=== PATIENT | female | born 1970 | race Caucasian/White ===

== ENCOUNTER 2017-01-18 19:30 | Emergency (ER) | payer OTHER ==
--- NOTE | ~2017-01-18 | CT2 ---
[facility] A Service of [facility] & [facility] RADIOLOGY TEXT RESULTS PATIENT: SHELLY JI LOCATION: [facility] : 70 UNIT #: [id number] AGE: [address]: Rafat Chi MD SEX: F ORDER DR: [id number] [facility] [address] [place], [place] [address] [id number] E MR#: [id number] Acc #: [id number] NAME: SHELLY JI. : 1970 SEX: F STUDY DATE/TIME: 01/18/2017 22:57 UNIT: [facility] ROOM: STUDY DESCRIPTION: CT Abd and Pelv W Cont Attending Physician: Rafat Chi M.D. Ordering Physician: Henrik Booth D.O. Primary Care Physician: Gabriela Patrick M.D. MEDICAL IMAGING REPORT This report is preliminary unless electronic signature is present EXAM CT abdomen and pelvis with contrast. Date: 01/18/2017. HISTORY Left side abdominal pain which began last week with aching, for the last 4 days, worse. 2 weeks ago had stents through the pancreas and liver. Previous cholecystectomy and tubal ligation. COMPARISON CT abdomen and pelvis with contrast 12/16/2016 and ERCP 12/30/2016. PROCEDURE 5 mm axial images from lung bases through lesser trochanters after intravenous and enteric contrast administration. Sagittal coronal reformed images were obtained. This CT exam was performed with one or more of the following radiation dose reduction techniques: automatic exposure control, adjustment of mA and/or kV according to patient size, and iterative reconstruction. FINDINGS Expandable metallic stent is seen within the CBD and the pancreatic duct stent is also in place. These appear in appropriate positioned. Pneumobilia in the liver thought to be related to previous biliary instrumentation. Cholecystectomy. Liver, spleen, pancreas, adrenals and kidneys are within normal limits. Moderate calcific atherosclerosis in a non-aneurysmal abdominal aorta. Lung bases appear free of consolidation. Previously described peripancreatic. No inflammatory changes have resolved. The appendix is not discretely visualized, but no pericecal inflammation is seen. [facility] A Service of [facility] & [facility] RADIOLOGY TEXT RESULTS PATIENT: [facility]LLY [id number] [birth year] UNIT #: [id number] AGE: [address]: Rafat Chi MD SEX: F ORDER DR: Pelvis findings: 3.8 x 1.5 cm left ovarian cyst versus fluid distension of the fallopian tube, similar to 12/16/2016. Uterus, urinary bladder and rectum are within normal limits. No pelvic adenopathy or free fluid. Mild emphysematous changes thought to be present in the lung bases. Old left ninth and tenth rib fractures. No acute osseous abnormalities are identified. IMPRESSION 1. No acute findings the abdomen and pelvis. No acute inflammation is seen. 2. The inflammatory changes of the pancreas and duodenum described on 12/16/2016 have resolved. Pancreatic duct stent, CBD stents appear appropriately positioned. 3. Cholecystectomy. 4. Fluid distension left fallopian tube versus elongated left ovarian cyst measuring 3.8 x 1.5 cm, thought to be similar to the 12/16/2016 examination. 5. Old left rib fractures. 6. Appendix not visualized. No pericecal inflammation is seen. Dictated by... Aury Coelho M.D. THIS IS AN ELECTRONICALLY VERIFIED REPORT Aury Coelho M.D. at 01/19/2017 9:59 PM CRISTOFER/margaret TD: 01/19/2017 10:31 JOB #: [id number] MEDICAL IMAGING REPORT COPY
[~2017-01-18 19:30] MED LIST: ALBUTEROL17 GM INH; BUSPAR PO; CLARITIN10 M3 PO; DILANTIN KAPSE100 MG PO; DILANTIN PO; EFFEXOR PO; FOLIC ACID1 MG PO; HCTZ PO; HYDROCHLOROTH12.5 M1 PO; HYDROCHLOROTH12.5 MG PO; LIBRIUM25 MG PO; LISINOPRIL PO; LITHIUM CARBON600 MG PO; LITHIUM PO; LORTAB 5-325 M1 EACH PO; MACROBID100 M1 PO; MILK OF MA800 MG/5 M PO; MULTIPLE VITAMI1 T11 PO; NORFLEX100 M1 PO; PRINIVIL20 M1 PO; PROTONIX PO; RISPERIDONE2 MG PO; SYMBICORT INH; THIAMINE HCL100 M2 PO; TYLENOL #3 PO; VOLTAREN75 MG PO; ZITHROMAX PO; ZOFRAN ODT4 MG PO; ZOLOFT100 MG PO
[2017-01-18 19:54] LABS: URINE SOURCE CLEAN CATCH
[2017-01-18 19:59] LABS: URINE APPEARANCE CLEAR; URINE BILIRUBIN NEG (NEG); URINE BLOOD 1+ (NEG); URINE COLOR YELLOW; URINE GLUCOSE NEG (NEG); URINE KETONE NEG (NEG); URINE LEUKOCYTE ESTERASE NEG (NEG); URINE NITRATE NEG (NEG); URINE PROTEIN NEG (NEG); URINE SPECIFIC GRAVITY 1.004 (1.003-1.035); URINE UROBILINOGEN 0.2 MG/DL (NEG)
[2017-01-18 20:00] LABS: BASOPHIL# 0.1 X10e3 (0-0.3); BASOPHIL% 1.1 % (0-2.5); EOSINOPHIL# 0.3 X10e3 (0-0.7); EOSINOPHIL% 4.1 % (0.0-7.0); HEMATOCRIT 43.3 % (35.0-45.0); HEMOGLOBIN 14.6 gm/dL (12.0-16.0); LYMPHOCYTE# 1.3 X10e3 (1.0-3.5); LYMPHOCYTE% 17.2 % (17.0-45.0); MEAN CELL VOLUME 100.6 FL (83-96); MEAN CORPUSCULAR HEMOGLOBIN 33.9 PG (28-34); MEAN CORPUSCULAR HGB CONC 33.7 g/dL (30-36); MEAN PLATELET VOLUME 7.1 FL (6.5-11.5); MONOCYTE# 0.5 X10e3 (0-1.0); MONOCYTE% 6.3 % (3.0-12.0); NEUTROPHIL# 5.3 X10e3 (1.5-7.1); NEUTROPHIL% 71.3 % (40-75); PLATELET COUNT 327 X10e3 (140-420); RED CELL DISTRIBUTION WIDTH 13.7 % (11.0-15.5); WHITE BLOOD COUNT 7.5 X10e3 (4.0-10.5)
[2017-01-18 20:01] LABS: DIFF IND NO
[2017-01-18 20:02] LABS: URBCS1 AUWI 0-2 /[HPF] (0-2); URINE BACTERIA AUWI NEG (NEGATIVE); URINE SQUAMOUS EPITHELIAL CELL NONE SEEN /[HPF]; UWBCS1 AUWI 0-2 (0-5)
[2017-01-18 20:03] LABS: CULTURE INDICATED? NO
[2017-01-18 20:28] LABS: ALBUMIN SERUM 4.1 g/dL (3.5-5.0); ALKALINE PHOSPHATASE 58 U/L (32-92); ALT (SGPT) 30 U/L (10-40); AMYLASE 46 U/L (0-46); AST (SGOT) 32 U/L (10-42); BILIRUBIN, DIRECT 0.1 mg/dL (0.0-0.2); BILIRUBIN,INDIRECT 0.1 mg/dL (0.0-0.9); BILIRUBIN,TOTAL 0.2 mg/dL (0.2-2.0); BLOOD UREA NITROGEN 7 mg/dL (9-23); CALCIUM SERUM 9.2 mg/dL (8.4-10.2); CARBON DIOXIDE 25 mmol/L (22-31); CHLORIDE 102 mmol/L (100-111); CREATININE SERUM 0.7 mg/dL (0.6-1.4); GLOM FILT RATE Estimated ABOVE60 mL/min (>60); GLUCOSE FASTING 97 mg/dL (70-110); LIPASE 111 U/L (22-51); PROTEIN TOTAL SERUM 6.7 g/dL (6.0-8.3); SODIUM 135 mmol/L (135-145)
[2017-01-18 22:39] LABS: POC - TROPONIN <0.05 ng/mL (<=0.05)
== END 2017-01-19 00:32 | disposition home or self-care (01) ==
LOC: CED 19:30
PROVIDERS: Emergency Medicine
DX: R10.9 Unspecified abdominal pain (principal); Z90.49 Acquired absence of other specified parts of digestive tract; Z90.89 Acquired absence of other organs; G40.909 Epilepsy, unspecified, not intractable, without status epilepticus
CPT/HCPCS: 74177; 80048; 80076; 81003; 82150; 82553; 83690; 84484; 84703; 85025; 85379; 96361; 96374; 96375; 99284; C9113; J2405; Q9967

== ENCOUNTER → 2017-02-18 | Outpatient (CLI) | payer OTHER ==
--- NOTE | ~2017-02-18 | CR7 ---
[facility] A Service [facility] RADIOLOGY TEXT RESULTS PATIENT: SHELLY JI LOCATION: [facility] : 70 UNIT #: [id number] AGE: [address]: Elysia Velazquez MD SEX: F ORDER DR: [id number] [place] [address] [id number] O MR#: [id number] Acc #: [id number] NAME: SHELLY JI : 1970 SEX: F STUDY DATE/TIME: 02/18/2017 18:51 UNIT: [facility] ROOM: STUDY DESCRIPTION: CR Abdomen Single AP View Attending Physician: Elysia Velazquez M.D. Ordering Physician: Elysia Velazquez M.D. Primary Care Physician: Gabriela Patrick M.D. MEDICAL IMAGING REPORT This report is preliminary unless electronic signature is present. EXAM Abdominal radiograph INDICATIONS Pancreatic stent placement. Followup. PROCEDURE Supine view of the abdomen COMPARISON CT from 01/18/2017 FINDINGS Previous cholecystectomy. Pancreatic stent is in place. Stent not appreciably changed since the previous CT. There is also a common duct wall stent in place that also appears stable in position. Moderate colonic stool . IMPRESSION Common duct and pancreatic duct stents are not significantly changed compared with 01/18/2017 CT. Dictated by... Wei Romo M.D. THIS IS AN ELECTRONICALLY VERIFIED REPORT Wei Romo M.D. at 02/20/2017 6:52 AM EED/bd TD: 02/19/2017 10:58 JOB #: [id number] [facility] A Service [facility] RADIOLOGY TEXT RESULTS PATIENT: SHELLY JI LOCATION: [facility] : 70 UNIT #: [id number] AGE: [address]: Elysia Velazquez MD SEX: F ORDER DR: MEDICAL IMAGING REPORT Page 1 of 1
== END | disposition home or self-care (01) ==
LOC: SRAD 18:43
DX: Z48.815 Encounter for surgical aftercare following surgery on the digestive system (principal); Z96.89 Presence of other specified functional implants
CPT/HCPCS: 74000

== ENCOUNTER → 2017-04-20 | Outpatient (CLI) | payer OTHER ==
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
== END | disposition home or self-care (01) ==
LOC: SRAD 17:10
DX: M79.622 Pain in left upper arm (principal)
CPT/HCPCS: 73060

== ENCOUNTER 2017-05-22 16:59 | Emergency (ER) | payer OTHER ==
--- NOTE | ~2017-05-22 | CT4 ---
[facility] A Service of [facility] & [facility] RADIOLOGY TEXT RESULTS PATIENT: SHELLY JI LOCATION: [facility] : 70 UNIT #: [id number] AGE: [address]: Aris Joyce MD SEX: F ORDER DR: [id number] [facility] [address] [place], [place] [address] [id number] E MR#: [id number] Acc #: [id number] NAME: SHELLY JI : 1970 SEX: F STUDY DATE/TIME: 05/22/2017 20:40 UNIT: [facility] ROOM: STUDY DESCRIPTION: CT Abd and Pelv Wo Cont Attending Physician: Aris Joyce M.D. Ordering Physician: Aris Joyce M.D. Primary Care Physician: Gabriela Patrick M.D. MEDICAL IMAGING REPORT This report is preliminary unless electronic signature is present EXAM CT scan of the abdomen and pelvis without contrast, 05/22/2017 HISTORY Left lower quadrant and right lower quadrant abdominal pain for 3 days. Pancreatitis, status post pancreatic duct stent placement. Hypertension. TECHNIQUE Spiral CT was performed through the abdomen and pelvis without oral or intravenous contrast administration as per clinician request. This CT exam was performed with one or more of the following radiation dose reduction techniques: automatic exposure control, adjustment of mA and/or kV according to patient size, and iterative reconstruction. FINDINGS ABDOMEN: The exam is extremely limited due to the lack of oral and intravenous contrast. The liver, spleen, adrenal glands are normal. The gallbladder is surgically absent. There is a stent in place within the pancreatic duct. No pancreatic or biliary ductal dilatation is seen. The right kidney is normal. Tiny nonobstructing stones left kidney. PELVIS FINDINGS: The gut, mesenteric and janee structures are normal. There is no free fluid in the abdomen or pelvis. Fluid distension of the left fallopian tube versus elongated left ovarian cyst is unchanged compared with 01/18/2017. This would be better evaluated with pelvic ultrasound if clinically indicated. The lung bases are normal. IMPRESSION 1. Exam is limited by the lack of oral and intravenous contrast. 2. Surgical absence of the gallbladder. 3. Pancreatic duct stent in good position. No pancreatic or biliary STS. [facility] A Service of [facility] & [facility] RADIOLOGY TEXT RESULTS PATIENT: SHELLY JI LOCATION: [facility] : 70 UNIT #: [id number] AGE: [address]: Aris Joyce MD SEX: F ORDER DR: ductal dilatation. 4. Nonobstructing left renal stones. 5. Stable fluid distension left fallopian tube versus elongated left ovarian cyst compared with 01/18/2017. This would be better evaluated with pelvic ultrasound if clinically indicated. Dictated by... Bakari Keller M.D. THIS IS AN ELECTRONICALLY VERIFIED REPORT Bakari Keller M.D. at 05/23/2017 7:22 AM YOLANDA/jacklyn TD: 05/23/2017 04:14 JOB #: [id number] MEDICAL IMAGING REPORT Page 1 of 1 COPY
[2017-05-22 19:54] LABS: BASOPHIL% 0.5 % (0-2.5); EOSINOPHIL# 0.1 X10e3 (0-0.7); EOSINOPHIL% 1.1 % (0.0-7.0); HEMOGLOBIN 14.6 gm/dL (12.0-16.0); LYMPHOCYTE# 1.7 X10e3 (1.0-3.5); LYMPHOCYTE% 25.1 % (17.0-45.0); MEAN CELL VOLUME 97.7 FL (83-96); MEAN CORPUSCULAR HEMOGLOBIN 32.4 PG (28-34); MEAN CORPUSCULAR HGB CONC 33.2 g/dL (30-36); MEAN PLATELET VOLUME 7.4 FL (6.5-11.5); MONOCYTE# 0.6 X10e3 (0-1.0); MONOCYTE% 8.8 % (3.0-12.0); NEUTROPHIL# 4.3 X10e3 (1.5-7.1); NEUTROPHIL% 64.5 % (40-75); PLATELET COUNT 219 X10e3 (140-420); RED CELL DISTRIBUTION WIDTH 14.2 % (11.0-15.5); WHITE BLOOD COUNT 6.6 X10e3 (4.0-10.5)
[2017-05-22 19:56] LABS: DIFF IND NO
[2017-05-22 20:21] LABS: BILIRUBIN, DIRECT 0.1 mg/dL (0.0-0.2); BILIRUBIN,INDIRECT 0.4 mg/dL (0.0-0.9); BILIRUBIN,TOTAL 0.5 mg/dL (0.2-2.0); BUN/CREATININE RATIO 11.42; CALCIUM SERUM 9.1 mg/dL (8.4-10.2); CREATININE SERUM 0.7 mg/dL (0.6-1.4); GLOM FILT RATE Estimated 103.2 mL/min (>60); PROTEIN TOTAL SERUM 6.9 g/dL (6.0-8.3)
[2017-05-22 20:32] LABS: URINE SOURCE CLEAN CATCH
[2017-05-22 20:41] LABS: URINE APPEARANCE CLEAR; URINE BILIRUBIN NEG (NEG); URINE BLOOD NEG (NEG); URINE COLOR YELLOW; URINE GLUCOSE NEG (NEG); URINE KETONE NEG (NEG); URINE LEUKOCYTE ESTERASE NEG (NEG); URINE NITRATE NEG (NEG); URINE PH 6.5 (5-8); URINE PROTEIN NEG (NEG); URINE UROBILINOGEN 0.2 MG/DL (NEG)
[2017-05-22 20:47] LABS: CULTURE INDICATED? NO
== END 2017-05-22 22:20 | disposition home or self-care (01) ==
LOC: CED 16:59
DX: K86.1 Other chronic pancreatitis (principal); M54.9 Dorsalgia, unspecified; G43.909 Migraine, unspecified, not intractable, without status migrainosus; E11.9 Type 2 diabetes mellitus without complications; I10 Essential (primary) hypertension; J45.909 Unspecified asthma, uncomplicated; R56.9 Unspecified convulsions; F41.9 Anxiety disorder, unspecified; F32.9 Major depressive disorder, single episode, unspecified; F17.210 Nicotine dependence, cigarettes, uncomplicated; Z79.899 Other long term (current) drug therapy; Z90.49 Acquired absence of other specified parts of digestive tract; Z98.890 Other specified postprocedural states
CPT/HCPCS: 36415; 74176; 80048; 80076; 81003; 83690; 84703; 85025; 96361; 96374; 96375; 99283; C9113; J2270; J2405